=== PATIENT | female | born 1980 | race Caucasian/White ===

== ENCOUNTER 2017-03-02 20:05 | Emergency (ER) | payer MEDICAID ==
[~2017-03-02] VITALS: Ht 162.6 cm; Wt 79.4 kg
[2017-03-02 20:20] VITALS: BP_SYST 114
[2017-03-02 21:01] LABS: BILIRUBIN,URINE NEGATIVE (NEGATIVE); BLOOD, URINE NEGATIVE (NEGATIVE); CLARITY/URINE CLEAR (CLEAR); COLOR,URINE YELLOW (YELLOW); GLUCOSE,URINE NEGATIVE (NEGATIVE); KETONES,URINE 2+ (NEGATIVE); LEUKOCYTE ESTERASE ,URINE NEGATIVE (NEGATIVE); NITRITE, URINE NEGATIVE (NEGATIVE); PROTEIN URINE NEGATIVE (NEGATIVE); UROBILINOGEN,URINE 0.2 (0.2-1.0)
[2017-03-02 23:19] LABS: BASOPHILS % (AUTO) 0.3 % (0.0-2.0); EOSINOPHILS # (AUTO) 0.1 K/uL (0.0-0.4); EOSINOPHILS % (AUTO) 1.5 % (0.0-4.0); HEMATOCRIT 40.5 % (36-48); HEMOGLOBIN 13.6 g/dL (12.0-16.0); LYMPHOCYTES # (AUTO) 2.3 K/uL (1.0-5.5); LYMPHOCYTES % (AUTO) 27.5 % (20.5-51.5); MEAN CORPUSCULAR HEMOGLOBIN 29 pg (27-31); MEAN CORPUSCULAR HGB CONC 34 % (32-36); MEAN CORPUSCULAR VOLUME 85 fL (79.0-98.0); MONOCYTES # (AUTO) 0.7 K/uL (0.0-1.0); MONOCYTES % (AUTO) 8.3 % (1.7-9.3); NEUTROPHILS # (AUTO) 5.2 K/uL (1.8-7.7); NEUTROPHILS % (AUTO) 62.4 % (40.0-70.0); PLATELET COUNT (AUTO) 257 K/uL (130-430); RED BLOOD CELL COUNT(AUTO) 4.76 MIL/uL (4.2-6.2); RED CELL DISTRIBUTION WIDTH 13.1 % (9.0-15.0); WHITE BLOOD COUNT (AUTO) 8.3 K/uL (4.8-10.8)
[2017-03-02 23:20] LABS: CALCIUM 8.4 mg/dL (8.4-11.0); CREATININE 0.89 mg/dL (0.55-1.30); POTASSIUM 3.3 mmol/L (3.5-5.1)
[2017-03-02 23:37] LABS: ALBUMIN 3.7 g/dL (3.4-4.8); FREE T4 (FREE THYROXINE) 0.6 ng/dL (0.6-1.6); THYROID STIMULATING HORMONE 1.18 uIu/mL (0.34-4.82); TOTAL BILIRUBIN 0.5 mg/dL (0.0-1.0); TOTAL PROTEIN, SERUM 6.9 g/dL (6.4-8.3)
[2017-03-02 23:50] VITALS: BP_SYST 115
== END 2017-03-02 23:50 | disposition home or self-care (01) ==
LOC: SED 20:05
DX: R53.1 Weakness (principal); F32.9 Major depressive disorder, single episode, unspecified; J45.909 Unspecified asthma, uncomplicated
CPT/HCPCS: 36415; 80053; 81003; 84439; 84443-TC; 85025; 93005; 99285

== ENCOUNTER 2019-06-01 16:24 | Emergency (ER) | payer MEDICAID ==
[~2019-06-01] VITALS: Ht 162.6 cm; Wt 76.2 kg
[2019-06-01 16:50] VITALS: BP_SYST 109
[2019-06-01 18:03] LABS: BILIRUBIN,URINE NEGATIVE (NEGATIVE); BLOOD, URINE NEGATIVE (NEGATIVE); CLARITY/URINE CLEAR (CLEAR); COLOR,URINE ORANGE (YELLOW); KETONES,URINE TRACE (NEGATIVE); LEUKOCYTE ESTERASE ,URINE NEGATIVE (NEGATIVE); PROTEIN URINE 2+ (NEGATIVE)
[2019-06-01 18:22] LABS: GLUCOSE,URINE NEGATIVE (NEGATIVE); NITRITE, URINE NEGATIVE (NEGATIVE); UROBILINOGEN,URINE >=8 (0.2-1.0)
[2019-06-01 18:24] LABS: BACTERIA,URINE FEW /HPF (None Seen); MUCUS,URINE None Seen /LPF (None Seen); RBC,URINE NONE SEEN /HPF (0-3); WBC,URINE 0-3 /HPF (0-3)
--- NOTE | 2019-06-01 18:54 | NUR ---
Patient to ER bed 07 to gown for evaluation. Side rails up. Report given to PARAG Virk
--- NOTE | 2019-06-01 19:24 | NUR ---
Report to Adria TUTTLE
--- NOTE | 2019-06-01 19:30 | NUR ---
Pt C/O lower abd pain and vaginal pain for the past month worsening with intercourse and urination. Pt denies any chest pain, SOB, N/V/D or any other symptoms at this time. Will continue to monitor.
--- NOTE | 2019-06-01 19:43 | NUR ---
ER Dr. Cooper at bedside examining patient.
--- NOTE | 2019-06-01 20:16 | NUR ---
Patient given written and verbal discharge instructions and verbalizes understanding. ER MD discussed with patient the results and treatment provided. Patient in stable condition. ID arm band removed. IV catheter removed intact and dressing applied, no active bleeding. Rx of Motrin and Zofran given. Patient educated on pain management and to follow up with PMD. Pain Scale 0. Opportunity for questions provided and answered. Medication side effect fact sheet provided.
[2019-06-01 20:17] VITALS: BP_SYST 109
[2019-06-05 00:08] LABS: CHLAMYDIA TRACHOMATIS NAA Negative (Negative); NEISSERIA GONORRHOEAE NAA Negative (Negative)
== END 2019-06-01 20:16 | disposition home or self-care (01) ==
LOC: SED 16:24
DX: N83.202 Unspecified ovarian cyst, left side (principal); N88.8 Other specified noninflammatory disorders of cervix uteri; R35.0 Frequency of micturition; F32.9 Major depressive disorder, single episode, unspecified
CPT/HCPCS: 76830-TC; 76857; 81000-TC; 87491; 87591; 99284

== ENCOUNTER 2021-12-20 06:40 | Emergency (ER) | payer BC, MEDICAID ==
[~2021-12-20] VITALS: Ht 160 cm; Wt 69.4 kg
[2021-12-20 06:45] VITALS: BP_SYST 101
--- NOTE | 2021-12-20 06:45 | NUR ---
Patient to ER bed 2 for evaluation. Side rails up.
--- NOTE | 2021-12-20 06:51 | NUR ---
ER at bedside examining patient.
[2021-12-20 07:26] LABS: BASOPHILS % (AUTO) 0.3 % (0.0-2.0); EOSINOPHILS # (AUTO) 0.2 K/uL (0.0-0.4); HEMATOCRIT 38.1 % (36-48); HEMOGLOBIN 12.7 g/dL (12.0-16.0); LYMPHOCYTES # (AUTO) 1.4 K/uL (1.0-5.5); LYMPHOCYTES % (AUTO) 16.8 % (20.5-51.5); MEAN CORPUSCULAR HEMOGLOBIN 29 pg (27-31); MEAN CORPUSCULAR HGB CONC 33 % (32-36); MEAN CORPUSCULAR VOLUME 87 fL (79.0-98.0); MONOCYTES # (AUTO) 0.5 K/uL (0.0-1.0); MONOCYTES % (AUTO) 6.6 % (1.7-9.3); NEUTROPHILS # (AUTO) 5.9 K/uL (1.8-7.7); NEUTROPHILS % (AUTO) 73.3 % (40.0-70.0); PLATELET COUNT (AUTO) 303 K/uL (130-430); RED BLOOD CELL COUNT(AUTO) 4.41 MIL/uL (4.2-6.2); RED CELL DISTRIBUTION WIDTH 13.9 % (9.0-15.0); WHITE BLOOD COUNT (AUTO) 8.1 K/uL (4.8-10.8)
[2021-12-20] MEDS: IBUPROFEN 800 MG TABLET PO ONE (07:34)
[2021-12-20] MEDS: HYDROcodone/ACETAMIN 10-325 MG TAB PO ONE (07:35)
[2021-12-20 07:37] LABS: ANION GAP 8 (5-15); CALCIUM 8.1 mg/dL (8.4-11.0); CHLORIDE 102 mmol/L (98-107); CREATININE 0.81 mg/dL (0.55-1.30); GLUCOSE 121 mg/dL (70-99); POTASSIUM 3.7 mmol/L (3.5-5.1); SODIUM SERUM 138 mmol/L (136-145); UREA NITROGEN, BLOOD 17 mg/dL (8-21)
[2021-12-20 07:38] LABS: BILIRUBIN,URINE NEGATIVE (NEGATIVE); BLOOD, URINE NEGATIVE (NEGATIVE); CLARITY/URINE CLEAR (CLEAR); COLOR,URINE YELLOW (YELLOW); GLUCOSE,URINE NEGATIVE (NEGATIVE); KETONES,URINE NEGATIVE (NEGATIVE); LEUKOCYTE ESTERASE ,URINE NEGATIVE (NEGATIVE); NITRITE, URINE NEGATIVE (NEGATIVE); PROTEIN URINE NEGATIVE (NEGATIVE); UROBILINOGEN,URINE 0.2 (0.2-1.0)
[2021-12-20 07:40] LABS: GFR AFRICAN AMERICAN 101 mL/min (>90)
[2021-12-20 07:42] LABS: ALANINE AMINOTRANSFERASE 23 U/L (12-78); ALBUMIN 2.9 g/dL (3.4-4.8); ASPARTATE AMINOTRANSFERASE 17 U/L (10-37); TOTAL BILIRUBIN 0.4 mg/dL (0.0-1.0); URIC ACID 3.5 mg/dL (2.4-7.0)
--- NOTE | 2021-12-20 07:45 | NUR ---
In ER bed 2 C/O R wrist pain No trauma. States that she woke up like that. MD has seen. Medicated as ordered Xray done Blood drawn. Urine sent Awaiting results
[2021-12-20 07:47] LABS: C-REACTIVE PROTEIN QUANT < 0.2 mg/dL (0-0.5)
[2021-12-20] MEDS ORDERED: HYDR-3917 PO (07:58)
[2021-12-20] MEDS ORDERED: IBUP-1969 PO (07:58)
[2021-12-20 08:17] VITALS: BP_SYST 103
--- NOTE | 2021-12-20 08:18 | NUR ---
Patient given written and verbal discharge instructions and verbalizes understanding. ER discussed with patient the results and treatment provided. Patient in stable condition. ID arm band removed. Rx of [place] and Motrin given. Patient educated on pain management and to follow up with PMD. Pain Scale 4. Opportunity for questions provided and answered. Medication side effect fact sheet provided.
[2021-12-20 09:22] LABS: ERYTHROCYTE SEDIMENTATION RATE 8 MM/HR (0-20)
== END 2021-12-20 08:17 | disposition home or self-care (01) ==
LOC: SED 06:40
DX: S63.501A Unspecified sprain of right wrist, initial encounter (principal); X58.XXXA Exposure to other specified factors, initial encounter; Y93.89 Activity, other specified; Y92.89 Other specified places as the place of occurrence of the external cause; Y99.8 Other external cause status
CPT/HCPCS: 36415; 80053; 81003; 81025; 84550; 84703; 85025; 85651-TC; 86140; 99284